=== PATIENT | female | born 1955 | race Caucasian/White ===

== ENCOUNTER 2023-11-23 11:49 | Emergency (ER) | payer MEDICARE, OTHER, SELFPAY ==
[2023-11-23 11:53] VITALS: BP 172/104
[2023-11-23 12:00] VITALS: BP 168/84
--- NOTE | 2023-11-23 12:04 | EDRN ---
Pt asking for MRI to be ordered, has on scheduled 12/09/23 @ .
[2023-11-23] MEDS: ROXICODONE 5 MG PO (12:40)
--- NOTE | 2023-11-23 12:43 | ED.GENMED ---
History of Present Illness
General
Chief Complaint: Back Pain
Source: patient
Exam Limitations: none
Time Seen by Provider: 11/23/23 12:11
Nursing documentation reviewed up to this point in time: agreed with
History of Present Illness
History of Present Illness:
68-year-old female with past medical history of GERD who presents to the emergency room for evaluation of low back pain with radicular symptoms. She says that she went on a vacation that involved a heavy amount of hiking in October. She says that
while she was on vacation she started to have low back pain with shooting pains down the left leg. She says that her had a steroid pack from episode of sciatica in the past which she took and her symptoms improved a bit and she was able to
finish the vacation. When she returned she was having significant pain and radicular symptoms and ultimately saw orthopedist through [facility] 11/06/2023. She had x-rays done and was diagnosed with sciatica. She was started on physical therapy
which she did for 2 weeks and she says that she did have improvement with physical therapy but after completion she says symptoms started to worsen once again. She was referred to pain management and she saw Dr. Barnard and had 'anti-inflammatory'
injection�she specifies it was not a steroid injection�yesterday but it did not help her symptoms at all. She says that she has been using ibuprofen 600 mg [id number], Tylenol 1000 mg [id number], topical lidocaine and that she is on to
manage her symptoms and so she came to the ER to be evaluated. She does have pain in the left low back that radiates towards the buttock and shooting pains down the left leg and towards the foot. Worse with certain movements. Somewhat better when
she lays in certain positions�for example somewhat better when she is laying prone. She does have paresthesias in the left lower leg and some numbness in the foot. No symptoms in the right leg. She denies any saddle anesthesia. She denies any
bowel or bladder incontinence. She did not have any falls or trauma. She has not had any fevers or chills. No reported history of cancer.
Review of Systems
Review of Systems
All Other Systems: ROS reviewed and negative except as documented in HPI and ROS
Constitutional: Denies fever
Respiratory: Denies trouble breathing
Cardiac: Denies chest pain
ABD/GI: Denies abdominal pain, nausea or vomiting
: Denies flank pain
Musculoskeletal: Reports back pain
Neurological: Reports weakness and numbness; Denies headache
Phy Exam
Physical Exam
Physical Exam:
General: Awake, alert, oriented x3; laying flat in bed, no acute distress
Head: Normocephalic, atraumatic
Eyes: Conjunctiva normal, EOMI
Throat: Airway intact, handling secretions
Neck: Trachea midline
Lungs: Breathing comfortably no distress
Heart: Regular rate
Back: Mild paraspinal tenderness lumbosacral region; she has a positive straight leg raise test on the left that improves with bowstringing
Neuro: Cranial nerves grossly intact, speech fluid; proximal strength intact left lower extremity, she has some weakness on dorsiflexion of the left great toe, subjective sensory deficit lateral aspect of the lower leg over these S1 distribution);
DTRs intact bilateral lower extremities
Skin: no rash
Extremities: No edema in extremities, equal pulses in all extremities
Scores
Heart Failure Risk
Heart Failure Risk Score: Not Applicable
Heart Score for Chest Pain Patients
STEMI patient?: Not applicable
Withdrawal Assessment of Alcohol
Withdrawal Assessment Completed?: Not applicable
Course
Orders/Labs/Results
Orders:
Orders
11/23/23 12:31
CT Lumbar Spine W/o Iv Contras Urgent
Comment:
Reason For Exam: worsening low back pain
Oxycodone [Roxicodone] 5 mg PO NOW STA
11/23/23 12:45
Bladder Scan- Treatment ONCE
11/23/23 14:29
Gabapentin [Neurontin] 100 mg PO NOW STA
Vital Signs
Initial and Last Documented VS:
Initial Vital Signs
Temp Pulse Resp BP Pulse Ox
36.9 C 80 16 172/104 98
11/23/23 11:53 11/23/23 11:53 11/23/23 11:53 11/23/23 11:53 11/23/23 11:53
Last Documented Vital Signs
Temp Pulse Resp BP Pulse Ox
36.9 C 74 18 168/84 99
11/23/23 11:53 11/23/23 12:00 11/23/23 12:00 11/23/23 12:00 11/23/23 12:00
MDM/Problems Addressed
Differential Diagnosis Includes:
Symptoms consistent with lumbosacral radiculopathy could be related to DJD, herniated disc/bulging disc
MDM/Problems Addressed:
68-year-old female presents for evaluation of low back pain and radicular symptoms that been ongoing for the past few weeks. Has seen orthopedist and done physical therapy with some improvement but symptoms have since worsened after completion of
PT. Had 'anti-inflammatory' low back injection yesterday which did not improve her symptoms. Inadequate pain control and so sent to the ER. She has no red flag symptoms or exam findings�her history and exam are consistent with a lumbosacral
radiculopathy/sciatica. No urinary retention on bladder scan. She already had an x-ray of the back. She says that her pain management doctor recommended CT to facilitate steroid injection. She is scheduled for an MRI in a few weeks. There is no
indication for emergent MRI at this point in time. She received Toradol from EMS for pain control. Will treat with p.o. oxycodone. Will restart steroid taper as this helped her in the past. Will check CT of the lumbar spine. Reassess after the
above.
CT shows signs consistent with bulging disks, no compression fractures or other acute pathology. Clinical reassessment pain did improve with p.o. oxycodone. Starting some radicular symptoms. Reasonable to start some gabapentin as well. Will
trial Medrol Dosepak. Continue with oxycodone at home. I long discussion with the patient, will discharge with pain control at home she will return if unable to manage symptoms with medications as above. She will follow-up with her pain
management and orthopedic doctors. Spoke about return precautions all questions answered.
Acute Exacerbation and/or Progression of Chronic Illness:
Acute hypertensive likely pain related�treat pain no emergent antihypertensives indicated
Acute Exacerbation and/or Progression of Chronic Illness: HTN
*Radiology
Radiology exam reviewed: radiology read reviewed
*Pulse Oximetry
Patient hypoxic: no
*Critical Care Note
Total Time (30-74mins, 75-104mins- exclusive of procedures): Not Applicable
Data Reviewed
Source: patient and spouse
Further Testing Considered But Not Given:
Considered need for emergent MRI
ED Attending Note
-
Portions of this chart may have been created with voice recognition software.� Occasional wrong word or��sound alike� substitutions may have occurred due to the inherent limitations of voice recognition software.
Discharge Plan
Departure
Patient Disposition: Home (Routine Discharge)
Date of Disposition: 11/23/23
Time of Disposition: 14:30
Patient with high blood pressure during this ER visit?: Yes
Discharge Problem:
Lumbosacral radiculopathy
Instructions: Low Back Pain (DC), Sciatica (DC), Radiculopathy (DC)
Prescriptions:
New
gabapentin 100 mg capsule
100 mg PO TID Qty: 30 0RF
oxycodone 5 mg tablet
5 mg PO Q8H PRN (Reason: Pain) Qty: 15 0RF
methylprednisolone [Medrol (Geovanni)] 4 mg tablets,dose pack
See Rx Instructions .ROUTE .COMPLEX Qty: 21 0RF
Rx Instructions:
for 6 days
Referrals:
Martin Barnard DO [Non-Admitting Privileges] - Call in 1-3 days for appt (Call to see next week)
Dorothy Betts CRNP [Family Provider] -
Activity Restrictions/Additional Instructions:
Thank you for visiting the Emergency Department at [facility].
1. Please schedule a follow up appointment as directed. Call first thing tomorrow morning to make an appointment.
2. If indicated, please take your medications as instructed and indicated on discharge paperwork.
3. If any of your symptoms do not improve, or persist, or become more severe within 6-12 hours, please return to the emergency department for further care.
4. Please return to the emergency department if you develop a headache, neck pain/stiffness, fever greater than 100.4F, chest pain, shortness of breath, persistent nausea, vomiting, slurred speech, difficulty walking, numbness/tingling, weakness,
signs of infection or any other symptoms that are worrisome to you.
Please call [phone] if you have any questions.
Interventions
Interventions:
*Risk Screen - Suicide Last Done: 11/23/23 11:53
*General Assessment Last Done: 11/23/23 11:53
*Neglect/Abuse Screening Last Done: 11/23/23 11:53
ED- Fall Risk Assessment Last Done: 11/23/23 11:53
*ED COVID-19 Vaccine History Last Done: 11/23/23 15:16
*Nursing Disposition Last Done: 11/23/23 14:36
ED-Musculoskeletal Assessment Last Done: 11/23/23 11:53
Discharge Date and Time
Discharge Date/Time: 11/23/23 15:16
Print Language: [place]
[2023-11-23] MEDS: NEURONTIN 100 MG PO (14:43)
== END 2023-11-23 15:16 | disposition home or self-care (01) ==
LOC: EMR 11:49
PROVIDERS: EMERGENCY PHYSICIAN Emergency Medicine; FAMILY PHYSICIAN Nurse Practitioner Adult Health
DX: M54.17 Radiculopathy, lumbosacral region (principal); M79.605 Pain in left leg; R53.1 Weakness; R03.0 Elevated blood-pressure reading, without diagnosis of hypertension; K21.9 Gastro-esophageal reflux disease without esophagitis; M19.90 Unspecified osteoarthritis, unspecified site
CPT/HCPCS: 99284; 51798; 72131